=== PATIENT | female | born 1985 | race Caucasian/White ===

== ENCOUNTER → 2016-09-18 | Outpatient (CLI) | payer MEDICAID ==
[~2016-09-18] MED LIST: PRED-188 PO
== END | disposition home or self-care (01) ==
LOC: Rad HDHVI 08:41
PROVIDERS: ATTEND Internal Medicine Cardiovascular Disease
DX: R07.89 Other chest pain (principal); R00.2 Palpitations
CPT/HCPCS: 93306

== ENCOUNTER 2017-01-17 08:05 | Emergency (ER) | payer MEDICAID ==
[~2017-01-17] VITALS: Ht 165.1 cm; Wt 64.4 kg
[2017-01-17 08:28] VITALS: BP 104/68
[2017-01-17] MEDS ORDERED: fentaNYL CITRATE 100 MCG/2 ML VL ONE (11:01)
== END 2017-01-17 13:04 | disposition left against medical advice (07) ==
LOC: ER 08:08
DX: R10.31 Right lower quadrant pain (principal); R11.2 Nausea with vomiting, unspecified; Z53.21 Procedure and treatment not carried out due to patient leaving prior to being seen by health care provider
CPT/HCPCS: 36415

== ENCOUNTER → 2017-02-10 | Outpatient (CLI) | payer MEDICAID ==
[~2017-02-10] VITALS: Ht 165.1 cm; Wt 63.5 kg
== END | disposition home or self-care (01) ==
LOC: Rad HDHVI 09:25
PROVIDERS: ATTEND Internal Medicine Cardiovascular Disease
DX: Z13.9 Encounter for screening, unspecified (principal); R06.02 Shortness of breath; R00.2 Palpitations; R07.89 Other chest pain
CPT/HCPCS: 78452; 93017; 96374; A9500

== ENCOUNTER 2017-05-15 20:56 | Inpatient (IN) | payer MEDICAID ==
[~2017-05-15] VITALS: Ht 165.1 cm; Wt 149.0 kg
[2017-05-15 21:55] LABS: Basophils # (auto) 0.1 uL; Basophils % (auto) 0.5 % (0.0-2.0); Eosinophils # (auto) 0.3 uL; Eosinophils % (auto) 2.8 % (0.0-7.0); Hematocrit 37.4 % (36.0-46.0); Hemoglobin 11.7 g/dL (12.2-16.2); Lymphocytes # (auto) 2.9 uL; Lymphocytes % (auto) 23.8 % (10.0-50.0); Mean Corpuscular Hemoglobin 24.5 pg (28.0-32.0); Mean Corpuscular Hgb Conc. 31.4 g/dL (32.0-36.0); Mean Corpuscular Volume 78.1 fL (80.0-100.0); Mean Platelet Volume 8.1 fL (6.9-10.8); Monocytes # (auto) 0.8 uL; Monocytes % (auto) 6.3 % (0.0-12.0); Neutrophils # (auto) 8.1 uL; Neutrophils % (auto) 66.6 % (37.0-80.0); Platelet Count (auto) 266 10^3/uL (140-450); White Blood Cell 12.2 10^3/uL (4.4-10.8)
[2017-05-15 22:09] LABS: Bilirubin, Total 0.3 mg/dL (0.2-1.0); Calcium 9.1 mg/dL (8.5-10.1); Potassium 3.9 mmol/L (3.5-5.1); Total Protein 7.9 g/dL (6.4-8.2)
[2017-05-15 22:40] LABS: Red Cell Distribution Width 23.2 % (11.8-14.3)
[2017-05-15 23:16] LABS: Anisocytosis Slight; Platelet Estimate Adequate
[2017-05-15 23:17] LABS: Hypochromia Slight; Microcytosis Slight
[2017-05-16] MEDS ORDERED: HYDROmorphone HCL 2 MG/ML VL IV ONE ×2 (00:30→04:00)
[2017-05-16] MEDS ORDERED: ONDANSETRON HCL 4 MG/2 ML VIAL IV ONE (00:30)
[2017-05-16] MEDS ORDERED: LORazepam 2MG/ML-1ML VIAL IV ONE (01:45)
[2017-05-16] MEDS ORDERED: SODIUM CHLORIDE 0.9% 1,000 ML IV ONE (04:00)
[2017-05-16] MEDS ORDERED: metroNIDAZOLE 500MG/100ML 100 ML IV ONE (06:15)
[2017-05-16] MEDS ORDERED: cefTRIAXone 1GM/50ML D5W 50 ML IV ONE (06:15)
[2017-05-16] MEDS ORDERED: ONDANSETRON HCL 4 MG/2 ML VIAL IV PRN (07:00)
[2017-05-16] MEDS: SODIUM CHLORIDE 0.9% 1,000 ML IV SCH ×2 (07:00→18:08)
[2017-05-16] MEDS ORDERED: TEMAZEPAM 15 MG CAP PO PRN (07:00)
[2017-05-16] MEDS ORDERED: ACETAMINOPHEN 325 MG TAB PO PRN (07:00)
[2017-05-16] MEDS ORDERED: HYDROmorphone HCL 2 MG/ML VL IV PRN (07:00)
[2017-05-16] MEDS ORDERED: SODIUM CHLORIDE 0.9% 500 ML IV ONE (07:00)
[2017-05-16] MEDS ORDERED: PANTOPRAZOLE 40 MG/10 ML VIAL IV SCH (10:00)
[2017-05-16] MEDS: ONDANSETRON HCL 4 MG/2 ML VIAL IV PRN ×5 (11:23→23:55)
[2017-05-16] MEDS: HYDROmorphone HCL 2 MG/ML VL IV PRN ×5 (11:23→23:55)
[2017-05-16 13:00] VITALS: BP 110/69
[2017-05-16] MEDS: metroNIDAZOLE 500MG/100ML 100 ML IV SCH ×2 (14:34→22:29)
[2017-05-16 15:25] LABS: Urine Bilirubin Negative (Negative); Urine Blood Negative /uL (Negative); Urine Color Yellow (Yellow); Urine Glucose Normal (Normal); Urine Ketone TRACE (Negative); Urine Nitrite Negative (Negative); Urine RBC <1 /hpf (0 - 4); Urine Squamous Epithelial Cell FEW /hpf (<5); Urine Urobilinogen Normal (Negative)
[2017-05-16] MEDS: methylPREDNISolone SOD SUCC 125 MG/2 ML VL IV SCH ×2 (15:57→22:28)
[2017-05-16 17:19] VITALS: BP 105/64
[2017-05-16 20:00] VITALS: BP 104/57
[2017-05-16 22:15] VITALS: BP 104/57
[2017-05-17 05:09] VITALS: BP 95/59
[2017-05-17] MEDS: HYDROmorphone HCL 2 MG/ML VL IV PRN (05:13)
[2017-05-17] MEDS: ONDANSETRON HCL 4 MG/2 ML VIAL IV PRN (05:13)
[2017-05-17] MEDS: metroNIDAZOLE 500MG/100ML 100 ML IV SCH (06:06)
[2017-05-17] MEDS: SODIUM CHLORIDE 0.9% 1,000 ML IV SCH (06:07)
[2017-05-17] MEDS: methylPREDNISolone SOD SUCC 125 MG/2 ML VL IV SCH (06:07)
[2017-05-17 06:16] LABS: Basophils # (auto) 0 uL; Eosinophils # (auto) 0 uL; Hematocrit 34.3 % (36.0-46.0); Lymphocytes # (auto) 0.8 uL; Mean Platelet Volume 8.7 fL (6.9-10.8); Neutrophils % (auto) 86.9 % (37.0-80.0)
[2017-05-17 06:18] LABS: Basophils % (auto) 0.1 % (0.0-2.0); Lymphocytes % (auto) 12.4 % (10.0-50.0); Mean Corpuscular Hemoglobin 25.3 pg (28.0-32.0); Mean Corpuscular Volume 79.2 fL (80.0-100.0); Monocytes # (auto) 0 uL; Monocytes % (auto) 0.6 % (0.0-12.0); Neutrophils # (auto) 5.7 uL; Platelet Count (auto) 234 10^3/uL (140-450); White Blood Cell 6.5 10^3/uL (4.4-10.8)
[2017-05-17 06:21] LABS: Red Cell Distribution Width 23.5 % (11.8-14.3)
[2017-05-17 06:38] LABS: Albumin 3.2 g/dL (3.4-5.0); BUN/Creatinine Ratio 24.4; Bilirubin, Total 0.7 mg/dL (0.2-1.0); Calcium 8.3 mg/dL (8.5-10.1); Phosphorus 3.2 mg/dL (2.5-4.90); Total Protein 6.8 g/dL (6.4-8.2)
[2017-05-17] MEDS ORDERED: cefTRIAXone 1GM/50ML D5W 50 ML IV SCH (09:00)
[2017-05-17 09:05] LABS: Anisocytosis Slight; Microcytosis Slight; Platelet Estimate Adequate
== END 2017-05-17 07:50 | disposition left against medical advice (07) | DRG 245 ==
LOC: EDBD 20:56 → ER 20:56 → OVERFLOW 20:57 → EAST 05-16 08:54
PROVIDERS: ADMIT Nurse Practitioner; ATTEND Internal Medicine
DX: K50.90 Crohn's disease, unspecified, without complications (principal); K56.609 Unspecified intestinal obstruction, unspecified as to partial versus complete obstruction; Z53.21 Procedure and treatment not carried out due to patient leaving prior to being seen by health care provider; D72.829 Elevated white blood cell count, unspecified; K43.9 Ventral hernia without obstruction or gangrene; Z88.5 Allergy status to narcotic agent; Z87.440 Personal history of urinary (tract) infections; Z88.8 Allergy status to other drugs, medicaments and biological substances; Z98.51 Tubal ligation status; Z80.9 Family history of malignant neoplasm, unspecified; Z98.82 Breast implant status
CPT/HCPCS: 36415; 71010; 74176; 80053; 81001; 82150; 83690; 83735; 84100; 84702; 85025; 87040; 96374; 96375; 96376; C9113; J0696; J2405; J3490